=== PATIENT | female | born 1990 | race Caucasian/White ===

== ENCOUNTER 2021-02-15 13:50 | Outpatient (CLI) | payer BC | END 2021-02-15 13:51 | disposition home or self-care (01) | LOC: DTY/OP 13:50 | PROVIDERS: ATTEND Surgery | DX: E66.01 Morbid (severe) obesity due to excess calories (principal) | CPT/HCPCS: 97802 ==

== ENCOUNTER 2021-04-15 11:30 | Inpatient (IN) | payer BC ==
[2021-06-30 12:19] VITALS: BMI 40.7
[2021-07-05] MEDS ORDERED: Heparin 5,000 UNITS/ML VIAL ONE (06:54)
[2021-07-05] MEDS ORDERED: Scopolamine 1.5 mg/72 hour Patch ONE (06:54)
[2021-07-05] MEDS ORDERED: Lidocaine 1% w/Epinephrine 1:100K 20 ML VIAL ONE (06:59)
[2021-07-05] MEDS ORDERED: Bupivacaine 0.25% 10 ML VIAL ONE (06:59)
[2021-07-05] MEDS ORDERED: Ketamine 50 MG/ML (10ML VIAL) ONE (07:01)
[2021-07-05] MEDS ORDERED: fentaNYL Citrate/PF 100 MCG/2 ML SYRINGE ONE (07:01)
[2021-07-05] MEDS ORDERED: Midazolam HCl 2 mg/2 ml Vial ONE (07:22)
[2021-07-05] MEDS ORDERED: CEFAZOLIN 2 GM VIAL ONE (07:23)
[2021-07-05] MEDS ORDERED: Sodium Chloride 0.9% 100 ML ONE (07:23)
[2021-07-05] MEDS ORDERED: Rocuronium Bromide 10 MG/ML (10ML VIAL) ONE (07:36)
[2021-07-05] MEDS ORDERED: Ondansetron PF 4 MG/2 ML Vial ONE (07:36)
[2021-07-05] MEDS ORDERED: ePHEDrine 50 MG/ML VIAL ONE (07:36)
[2021-07-05] MEDS ORDERED: Glycopyrrolate 0.2 MG/ML 5 ML SYRINGE ONE (07:36)
[2021-07-05] MEDS ORDERED: PROPOFOL 200 MG/20 ML VIAL ONE (07:36)
[2021-07-05] MEDS ORDERED: Ketorolac Tromethamine 30 MG/ML VIAL ONE (07:36)
[2021-07-05] MEDS ORDERED: Dexamethasone 20 MG/5 ML VIAL ONE (07:36)
[2021-07-05] MEDS ORDERED: Lidocaine 1% PF 5 ML VIAL ONE (07:36)
[2021-07-05] MEDS ORDERED: Naloxone HCl 0.4 mg/ml Vial IV PRN (08:04)
[2021-07-05] MEDS ORDERED: diphenhydrAMINE 25 MG CAP PO PRN (08:04)
[2021-07-05] MEDS ORDERED: diphenhydrAMINE 50 MG/ML VIAL IVP PRN ×2 (08:04→11:30)
[2021-07-05] MEDS ORDERED: Ondansetron PF 4 MG/2 ML Vial IVP PRN ×2 (08:04→11:30)
[2021-07-05] MEDS ORDERED: Promethazine HCl 25 MG/ML VIAL IM PRN ×3 (08:04→11:30)
[2021-07-05] MEDS ORDERED: Promethazine HCl 25 MG/ML VIAL IVPB PRN (08:04)
[2021-07-05] MEDS ORDERED: diphenhydrAMINE 50 MG/ML VIAL IM PRN (08:04)
[2021-07-05] MEDS ORDERED: Ondansetron HCl/PF 4 MG/2 ML Vial IVP PRN (08:04)
[2021-07-05] MEDS ORDERED: fentaNYL Citrate/PF 2,000 MCG in Sodium Chloride 0.9% 60 ML IV PRN (08:04)
[2021-07-05] MEDS ORDERED: Communication Order-Pharmacy FS SCH (08:15)
[2021-07-05] MEDS ORDERED: Fentanyl 100 MCG/2 ML VIAL ONE ×2 (09:11→10:10)
[2021-07-05] MEDS ORDERED: hydrALAZINE 20 MG/ML VIAL SLOW IVP PRN (11:30)
[2021-07-05] MEDS ORDERED: Dextrose 50% Abboject 50 ML SYRINGE SLOW IVP PRN (11:30)
[2021-07-05] MEDS ORDERED: Dextrose 5% in Water 1,000 ML IV PRN (11:30)
[2021-07-05] MEDS: D5 1/2 NS w/20 mEq KCL 1,000 ML IV SCH ×2 (14:39→21:38)
[2021-07-05] MEDS ORDERED: Enoxaparin Sodium 40 MG/0.4 ML SYRINGE SC SCH (21:00)
[2021-07-06 05:41] LABS: #Lymphocytes 2.6 thou/uL (1.20-3.40); #Monocytes 1.1 thou/uL (0.11-0.59); %Eosinophils 0.2 % (0.0-10.0); %Lymphocytes 16.7 % (21.0-51.0); %Monocytes 6.7 % (0.0-10.0); %Neutrophils 76.4 % (42.0-75.0); Hemoglobin 13.2 g/dL (12.0-16.0); Mean Corpuscular HGB CONC 33.8 g/dL (32.0-36.0); Mean Corpuscular Volume 91.9 fL (78.0-98.0); Mean Platelet Volume 8.2 fL (7.4-10.4); Platelet Count 278 thou/uL (130-400); Red Blood Cell (RBC) Count 4.25 mill/uL (4.20-5.40); White Blood Cell (WBC) Count 15.6 thou/uL (4.8-10.8)
[2021-07-06 06:01] LABS: Anion Gap 8 mmol/L (10-20); BUN (Urea Nitrogen) 6 mg/dL (7.0-18.7); Calc. Creatinine Clearance 201 mL/min (70-130); Calcium 8.5 mg/dL (7.8-10.44); Carbon Dioxide 27 mmol/L (22-29); Chloride 106 mmol/L (98-107); Glucose 95 mg/dL (70-105); Potassium 4.2 mmol/L (3.5-5.1); Sodium 137 mmol/L (136-145)
[2021-07-06] MEDS: D5 1/2 NS w/20 mEq KCL 1,000 ML IV SCH (06:21)
[2021-07-06] MEDS: Hydrocodone-Acetamin 15 ML UDCUP PO PRN ×2 (06:25→11:06)
[2021-07-06] MEDS ORDERED: Venlafaxine XR 37.5 MG CAP PO SCH (09:00)
[2021-07-06] MEDS ORDERED: Pantoprazole 40 MG VIAL IVP SCH (09:00)
[2021-07-06 09:56] VITALS: BP 144/83; TEMP 98.4
== END 2021-07-06 11:11 | disposition home or self-care (01) | DRG 621 ==
LOC: EDSTATUS 04-20 11:30 → SURG A 07-05 05:49
PROVIDERS: ADMIT Surgery; ATTEND Surgery
PROC: 0DB64Z3 Excision of Stomach, Percutaneous Endoscopic Approach, Vertical (ICD-10-PCS; principal; 2021-07-05)
PROC: 8E0W4CZ Robotic Assisted Procedure of Trunk Region, Percutaneous Endoscopic Approach (ICD-10-PCS; 2021-07-05)
DX: E66.01 Morbid (severe) obesity due to excess calories (principal); Z68.41 Body mass index [BMI] 40.0-44.9, adult; F41.9 Anxiety disorder, unspecified; G43.909 Migraine, unspecified, not intractable, without status migrainosus; J45.909 Unspecified asthma, uncomplicated; Z79.899 Other long term (current) drug therapy; Z98.890 Other specified postprocedural states; Z81.8 Family history of other mental and behavioral disorders; Z81.1 Family history of alcohol abuse and dependence; Z80.42 Family history of malignant neoplasm of prostate; Z80.3 Family history of malignant neoplasm of breast; Z80.8 Family history of malignant neoplasm of other organs or systems; Z88.8 Allergy status to other drugs, medicaments and biological substances
CPT/HCPCS: 36415; 80048; 85025; 88307; 94760; C9113; J1100; J1644; J1650; J1885; J2250; J2405; J2704; J3010; J3480; J3490; S0020

== ENCOUNTER 2021-07-01 09:15 | Outpatient (CLI) | payer BC ==
[2021-07-01 10:30] LABS: #Eosinphils 0.2 10x3/uL (0.0-0.5); #Monocytes 0.6 10x3/uL (0.0-1.1); %Basophils 0.5 % (0.0-2.0); %Eosinophils 2.3 % (0.0-6.0); %Lymphocytes 32.9 % (18.0-47.0); %Monocytes 6.6 % (0.0-10.0); %Neutrophils 57.5 % (40.0-75.0); Hemoglobin 13.9 g/dL (12.0-15.5); Mean Corpuscular HGB CONC 34.2 g/dL (32.0-36.0); Mean Corpuscular Hemoglobin 30.2 pg (27.0-33.0); Mean Corpuscular Volume 88.3 fl (81.6-98.3); Mean Platelet Volume 10.7 fl (7.4-10.4); Platelet Count 293 10x3/uL (150-450); RBC Distribution Width 12.5 % (11.5-14.5); Red Blood Cell (RBC) Count 4.61 10x6/uL (3.90-5.03); White Blood Cell (WBC) Count 8.7 10x3/uL (3.5-10.5)
[2021-07-01 10:53] LABS: ALT (SGPT) 17 U/L (8-55); AST (SGOT) 19 U/L (5-34); Albumin 4.5 g/dL (3.5-5.0); Alkaline Phosphatase 42 U/L (40-110); Anion Gap 12 mmol/L (10-20); BUN (Urea Nitrogen) 16 mg/dL (7.0-18.7); Bilirubin, Total 0.5 mg/dL (0.2-1.2); Calc. Creatinine Clearance 0 mL/min (70-130); Calcium 9.5 mg/dL (7.8-10.44); Carbon Dioxide 29 mmol/L (22-29); Chloride 103 mmol/L (98-107); Globulin 2.7 g/dL (2.4-3.5); Glucose 91 mg/dL (70-105); Potassium 4.2 mmol/L (3.5-5.1); Protein, Total 7.2 g/dL (6.0-8.3); Sodium 140 mmol/L (136-145)
[2021-07-01 10:57] LABS: Pregs Control Background? CLEAR/WHITE (CLR/WHITE); Pregs Control Bar Appear? YES (CONTROL BAR)
[2021-07-01 14:30] LABS: BHCG - Serum Negative (NEGATIVE)
[2021-07-01 21:29] LABS: SARS-CoV-2 PCR by NAA Not Detected (NotDetected)
== END 2021-07-01 09:16 | disposition home or self-care (01) ==
LOC: LABBT 09:15
PROVIDERS: ATTEND Surgery
DX: Z01.818 Encounter for other preprocedural examination (principal); E66.01 Morbid (severe) obesity due to excess calories; Z20.822 Contact with and (suspected) exposure to COVID-19
CPT/HCPCS: 71046; 80053; 83036; 84702; 84703; 85025; 93005; 93010; U0003; U0005

== ENCOUNTER 2022-08-18 11:00 | Outpatient (CLI) | payer BC | END 2022-08-18 11:01 | disposition home or self-care (01) | LOC: RAD 11:00 | PROVIDERS: ATTEND Family Medicine | DX: M54.6 Pain in thoracic spine (principal); M47.814 Spondylosis without myelopathy or radiculopathy, thoracic region | CPT/HCPCS: 72070; 72100 ==